=== PATIENT | female | born 1975 ===

== ENCOUNTER 2017-12-23 12:50 | Emergency (ER) | payer OTHER ==
[~2017-12-23] VITALS: Ht 152.4 cm; Wt 59.0 kg
[~2017-12-23 12:50] MED LIST: MOTRIN800 MG PO; OMEGA-31000 MG PO; PRENATAL 19 TA1 EAC1 PO
== END 2017-12-23 17:02 | disposition home or self-care (01) ==
LOC: ER 12:50
DX: J06.9 Acute upper respiratory infection, unspecified (principal); R51 Headache